=== PATIENT | female | born 1965 | race Caucasian/White ===

== ENCOUNTER 2017-05-12 09:13 | Emergency (ER) | payer SELFPAY, OTHER ==
[2017-05-12] MEDS: KETOROLAC 60 MG/2 ML INJ. IM (10:25)
== END 2017-05-12 10:30 | disposition home or self-care (01) ==
LOC: ER 09:13
DX: M25.561 Pain in right knee (principal); M25.562 Pain in left knee
CPT/HCPCS: 96372; 99283-25; J1885